=== PATIENT | female | born 1990 | race African-American/Black ===

== ENCOUNTER 2023-10-14 11:56 | Emergency (ER) | payer OTHER ==
[~2023-10-14 11:56] MED LIST: Iopamidol 370 76% 100 ML VIAL ONE
[2023-10-14] MEDS ORDERED: Ketorolac Tromethamine 30 MG (1 mL) VIAL ONE (12:28)
[2023-10-14 12:49] LABS: #Basophils 0.1 thou/uL (0.0-0.2); #Eosinphils 0.1 thou/uL (0.0-0.7); #Lymphocytes 1.3 thou/uL (1.20-3.40); #Monocytes 0.4 thou/uL (0.11-0.59); #Neutrophils 2.3 thou/uL (1.40-6.50); %Basophils 1.3 % (0.0-1.0); %Eosinophils 2.2 % (0.0-10.0); %Lymphocytes 31.9 % (21.0-51.0); %Monocytes 8.9 % (0.0-10.0); %Neutrophils 55.8 % (42.0-75.0); Hematocrit 38.7 % (36.0-47.0); Hemoglobin 11.2 g/dL (12.0-16.0); Mean Corpuscular HGB CONC 28.9 g/dL (32.0-36.0); Mean Corpuscular Hemoglobin 24.2 pg (27.0-31.0); Mean Corpuscular Volume 83.8 fl (78.0-98.0); Mean Platelet Volume 9.6 fL (7.4-10.4); Platelet Count 199 10x3/uL (130-400); Red Blood Cell (RBC) Count 4.62 mill/uL (4.20-5.40); White Blood Cell (WBC) Count 4.1 10x3/uL (4.8-10.8)
[2023-10-14 13:07] LABS: ALT (SGPT) 11 U/L (8-55); AST (SGOT) 16 U/L (5-34); Albumin 4.2 g/dL (3.5-5.0); Alkaline Phosphatase 39 U/L (40-110); Anion Gap 14 mmol/L (10-20); BUN (Urea Nitrogen) 11 mg/dL (7.0-18.7); Bilirubin, Total 0.4 mg/dL (0.2-1.2); Calc. Creatinine Clearance 0 mL/min (70-130); Calcium 9.6 mg/dL (7.8-10.44); Carbon Dioxide 23 mmol/L (22-29); Chloride 105 mmol/L (98-107); Estimated GFR 69; Glucose 81 mg/dL (70-105); Lipase 31 U/L (8-78); Potassium 3.4 mmol/L (3.5-5.1); Protein, Total 8.2 g/dL (6.0-8.3); Sodium 139 mmol/L (136-145)
[2023-10-14 13:25] LABS: Bilirubin Negative (Negative); Blood, Urine Trace (Negative); Clarity Clear (Clear); Glucose, Urine (Dipstick) Negative (Negative); Ketone, Urine Negative (Negative); Leukocyte Small (Negative); Nitrite Negative (Negative); Protein, Urine (Dipstick) Negative (Neg-Trace); Specific Gravity, Urine 1.025 (1.005-1.030); Urobilinogen 0.2 mg/dL (Less than 2)
[2023-10-14 13:30] LABS: RBC/HPF 0-3 HPF (0-3)
[2023-10-14 13:31] LABS: Bacteria/HPF Rare-Few HPF (None Seen); CAUTI Indications for Culture Pelvic or flank pain
[2023-10-14 13:32] LABS: Pregnancy Test - Urine (BHCG) Negative (Negative); Pregu Control Background? CLEAR/WHITE (CLR/WHITE); Pregu Control Bar Appear? YES (CONTROL BAR); Specific Gravity 1.025 (1.002-1.036); Urine Culture Reflex No No
== END 2023-10-14 15:11 | disposition home or self-care (01) ==
LOC: NAV ERS 11:56
DX: K42.9 Umbilical hernia without obstruction or gangrene (principal); N83.202 Unspecified ovarian cyst, left side; N83.201 Unspecified ovarian cyst, right side; R19.15 Other abnormal bowel sounds; I10 Essential (primary) hypertension
CPT/HCPCS: 74177; 80053; 81001; 81025; 83690; 85025; 96374; J1885; Q9967

== ENCOUNTER 2024-01-26 04:11 | Emergency (ER) | payer OTHER, SELFPAY ==
[2024-01-26] MEDS ORDERED: Ketorolac Tromethamine 60 MG/2 ML VIAL ONE (05:30)
== END 2024-01-26 05:50 | disposition home or self-care (01) ==
LOC: NAV ERS 04:11
DX: M62.830 Muscle spasm of back (principal)
CPT/HCPCS: 96372; 99283; J1885

== ENCOUNTER 2024-05-03 11:48 | Emergency (ER) | payer SELFPAY ==
[2024-05-03] MEDS ORDERED: Ibuprofen 200 MG TAB ONE (12:39)
[2024-05-03 12:51] LABS: Bilirubin Negative (Negative); Blood, Urine Large (Negative); Clarity Clear (Clear); Glucose, Urine (Dipstick) Negative (Negative); Ketone, Urine Negative (Negative); Leukocyte Negative (Negative); Nitrite Negative (Negative); Protein, Urine (Dipstick) Negative (Neg-Trace); Urobilinogen 0.2 mg/dL (Less than 2); pH, Urine 6.5 (5.0-9.0)
[2024-05-03 12:54] LABS: Pregu Control Background? CLEAR/WHITE (CLR/WHITE); Pregu Control Bar Appear? YES (CONTROL BAR)
[2024-05-03 12:56] LABS: Pregnancy Test - Urine (BHCG) Negative (Negative); RBC/HPF 0-3 HPF (0-3)
== END 2024-05-03 13:16 | disposition home or self-care (01) ==
LOC: NAV ERS 11:48
DX: M79.10 Myalgia, unspecified site (principal)
CPT/HCPCS: 71045; 81001; 81025; 87428